=== PATIENT | female | born 1955 | race Caucasian/White ===

== ENCOUNTER 2019-08-01 11:30 | Outpatient (RCR) | payer OTHER, SELFPAY ==
--- NOTE | 2019-07-21 14:47 | PTOPEVAL ---
Thank you for referring this patient to [facility]. Please review, sign, date and return this plan of care DIEGO. Pt seen for PT evaluation following back surgery. She requires additional skilled therapy to address impairments of weakness, pain, decreased functional mobility and instruction in a HEP. Cont PT 2-3x/wk x 6 wk. I agree with and certify that the following plan of care is medically necessary. Referring Physician Date Attending Provider: PHYSICIAN NOT ON STAFF Referring Provider: Dr. Saulo Bell MD *PT Outpatient Evaluation Start: 07/21/19 13:37 Freq: Status: Active Protocol: Document 07/21/19 13:34 CAP (Rec: 07/21/19 14:47 CAP [id number]) Therapy Assessment Status Assessment Status Evaluation Outpatient Past Medical History Cardiovascular History Hx Hypertension Yes Gastrointestinal History Hx Gastroesophageal Reflux Disease Yes Hx Other Gastrointestinal Disorders Yes: obesity Musculoskeletal History Hx Arthritis Yes Hx Back Injury Yes Hx Back Pain Yes: chronic low back pain Hx Degenerative Disk Disease Yes: DDD L1-l4 Hx Spinal Surgery Yes: 06/05/19 Hx Other Musculoskeletal Disorders Yes: soco carpal tunnel syndrome Endocrine History Hx Diabetes Yes: neuropathy Evaluation Information Problem Diagnosis disc hernitation L1-L4 Onset 2019 Cause unknown Additional Evaluation Detail Prior to surgery she feel 2 x' s when walking. No injury with the falls. She is not performing a HEP from her previous PT. Subjective Information She underwent diskectomy and Query Text:As Reported By Patient/ hemilaminectomy of lumbar Family region on 06/05/19. She was DC home after 1 day. She has not been performing any exercise at home,only minimal walking around the house. She uses the walker 90% of the time, but a cane with assist of family member for limited community mobility. She is able to perform community walking in the store if using a cart to hold onto for support. After the surgery she has had improved right thigh pain and spasm. States she started having back pain in 2018
--- NOTE | 2019-08-04 11:00 | PCPTNOTE ---
Patient called & cancelled scheduled appointment this date due to [ ]illness.
--- NOTE | 2019-08-05 15:50 | PCPTNOTE ---
Patient called & cancelled all her remaining scheduled appointment this date due to COVID-19. States she will be losing her insurance on 08/20/19. Will DC pt from skilled therapy at this time.
--- NOTE | 2019-08-05 15:54 | PCPTNOTE ---
Admitting Provider: Attending Provider: PHYSICIAN NOT ON STAFF Patient:Dione Frank Date of :1955 Patient has not returned for any further treatments since 08/01/2019, therefore she will be discharged from therapy at this time. She has requested to not continue therapy due to COVID-19 concerns. The goals have not been achieved due to pt seen for only 2 visits. Thank you for referring this patient to [facility]. Please review, sign, date and return this discharge summary DIEGO. I have been updated about the patient's current status and I agree with discharge from the above service at this time. Referring Physician Date
== END 2019-08-06 15:19 | disposition home or self-care (01) ==
LOC: ANHPT 11:30
PROVIDERS: PCP Family Medicine
DX: M51.26 Other intervertebral disc displacement, lumbar region (principal)
CPT/HCPCS: 97110; 97162

== ENCOUNTER 2020-09-21 11:55 | Outpatient (CLI) | payer MEDICARE, SELFPAY ==
[2020-09-21 12:20] LABS: Basophils Absolute Auto 0.1 K/mm3 (0.0-0.1); Basophils Percent Auto 0.4 % (0.2-1.2); Eosinophils Absolute Auto 0.2 K/mm3 (0-0.3); Hematocrit 47.5 % (37.0-47.0); Hemoglobin 15.5 g/dL (12.0-15.0); Immature Granulocyte Absolute 0.05 K/mm3 (0.00-0.031); Immature Granulocyte Percent A 0.3 % (0-0.5); Lymphocytes Absolute Auto 4.51 K/mm3 (0.9-3.2); Lymphocytes Percent Auto 26.1 % (18.3-44.2); Mean Corpuscular HGB Conc 32.6 g/dl (32-36); Mean Corpuscular Hemoglobin 27.1 pg (26-34); Mean Corpuscular Volume 83.2 fl (80-100); Mean Platelet Volume 10.2 fl (7.4-10.4); Monocytes Absolute Auto 0.9 K/mm3 (0.1-0.6); Neutrophils Absolute Auto 11.6 K/mm3 (1.3-6.7); Neutrophils Percent Auto 67.2 % (45.5-73.1); Platelet Count Result 299 k/mm3 (150-375); Red Blood Count 5.71 M/mm3 (4.2-5.4); Red Cell Distribution Width 15.5 % (11.5-14.5); White Blood Count 17.3 K/mm3 (4.5-10.0)
[2020-09-21 12:26] LABS: Atypical Lymphocytes Present; Platelet Estimate Adequate (Adequate)
[2020-09-21 16:59] LABS: Alanine Aminotransferase 20 U/L (4-35); Albumin Level 4.4 g/dL (3.5-5.1); Alkaline Phosphatase 99 U/L (38-126); Anion Gap 14 mmol/L (8-16); Aspartate Amino Transferase 32 U/L (14-36); Bilirubin,Total 0.6 mg/dL (0.2-1.3); Blood Urea Nitrogen 23 mg/dL (7-17); Calcium 9.4 mg/dL (8.4-10.2); Carbon Dioxide 25 mmol/L (22-30); Chloride 100 mmol/L (98-107); Estimated Glomerular Filt Rate > 60; Glucose 205 mg/dL (65-105); Potassium 3.4 mmol/L (3.4-5.0); Sodium 139 mmol/L (137-145)
[2020-09-21 17:02] LABS: Immunoglobulin A 599 mg/dL (70-400); Immunoglobulin G 1211 mg/dL (700-1600); Immunoglobulin M 204 mg/dL (40-230)
[2020-09-23 22:41] LABS: Kappa\\Lambda Light Chains 0.99 (0.26-1.65); Lambda Light Chain 36.1 mg/L (5.7-26.3)
[2020-09-27 05:11] LABS: Alpha 1 Globulin 0.3 g/dL (0.2-0.3); Alpha 2 Globulin 0.9 g/dL (0.5-0.9); Beta 1 Globulin 0.6 g/dL (0.4-0.6); Gamma Globulin 1.2 g/dL (0.8-1.7); Protein, Total 7.6 g/dL (6.1-8.1)
== END 2020-09-21 11:56 | disposition home or self-care (01) ==
PROVIDERS: PCP Nurse Practitioner Adult Health; Visit Provider Internal Medicine Hematology & Oncology
DX: D72.9 Disorder of white blood cells, unspecified (principal)
CPT/HCPCS: 36415; 80053; 82784; 83883; 84155; 84165; 85025

== ENCOUNTER 2020-09-27 08:21 | Outpatient (CLI) | payer MEDICARE, SELFPAY ==
--- NOTE | ~2020-09-27 | MM_ITS ---
EXAMINATION: MM screening maria elena BI w rose HISTORY: Screening mammogram TECHNIQUE: Craniocaudal and mediolateral oblique 3-D tomosynthesis images were obtained and synthetic 2-D images were generated. CAD analysis was submitted and interpreted. COMPARISON: 04/02/2015 BREAST PARENCHYMAL COMPOSITION: The breasts are almost entirely fatty. FINDINGS: There is no evidence of suspicious mass, calcification, or architectural distortion to sugg est malignancy in either breast. There has been no suspicious interval change. IMPRESSION: 1. No mammographic evidence of malignancy. 2. Recommend routine screening mammography in one year. BI-RADS Category 1: Negative Reviewed, dictated and finalized at location A.
== END 2020-09-27 08:22 | disposition home or self-care (01) ==
LOC: ANHIMG 08:22
PROVIDERS: PCP Nurse Practitioner Adult Health; Visit Provider Nurse Practitioner Adult Health
DX: Z12.31 Encounter for screening mammogram for malignant neoplasm of breast (principal)
CPT/HCPCS: 77063; 77067

== ENCOUNTER 2020-10-06 10:11 | Outpatient (CLI) | payer MEDICARE, SELFPAY | END 2020-10-06 10:12 | disposition home or self-care (01) | LOC: ANHLAB 10:14 | PROVIDERS: PCP Nurse Practitioner Adult Health; Visit Provider Internal Medicine Hematology & Oncology | DX: D72.829 Elevated white blood cell count, unspecified (principal) | CPT/HCPCS: 88184; 88185 ==

== ENCOUNTER 2022-06-22 14:38 | Outpatient (CLI) | payer MEDICARE, SELFPAY ==
[2022-06-22 15:10] LABS: Basophils Absolute Auto 0.1 K/mm3 (0.0-0.1); Basophils Percent Auto 0.4 % (0.2-1.2); Eosinophils Absolute Auto 0.2 K/mm3 (0-0.3); Eosinophils Percent Auto 1.1 % (0-4.4); Hematocrit 32.2 % (37.0-47.0); Hemoglobin 8.6 g/dL (12.0-15.0); Immature Granulocyte Absolute 0.04 K/mm3 (0.00-0.031); Immature Granulocyte Percent A 0.3 % (0-0.5); Lymphocytes Absolute Auto 3.81 K/mm3 (0.9-3.2); Lymphocytes Percent Auto 23.9 % (18.3-44.2); Mean Corpuscular HGB Conc 26.7 g/dl (32-36); Mean Corpuscular Hemoglobin 16.9 pg (26-34); Mean Corpuscular Volume 63.3 fl (80-100); Mean Platelet Volume 9.1 fl (7.4-10.4); Monocytes Absolute Auto 0.9 K/mm3 (0.1-0.6); Monocytes Percent Auto 5.8 % (2.6-8.5); Neutrophils Absolute Auto 10.9 K/mm3 (1.3-6.7); Neutrophils Percent Auto 68.5 % (45.5-73.1); Platelet Count Result 418 k/mm3 (150-375); Red Blood Count 5.09 M/mm3 (4.2-5.4); Red Cell Distribution Width 20.9 % (11.5-14.5); White Blood Count 15.9 K/mm3 (4.5-10.0)
[2022-06-22 15:20] LABS: Atypical Lymphocytes Present; Platelet Estimate Increased (Adequate); Schistocytes None Seen (NORMAL); Target Cells 1+ (NORMAL)
[2022-06-22 15:21] LABS: Anisocytosis 1+ (NORMAL); Hypochromasia 1+ (NORMAL); Ovalocytes 1+ (NORMAL); Poikilocytosis 2+ (NORMAL)
[2022-06-22 17:18] LABS: Iron < 10 ug/dL (37-170)
[2022-06-22 17:24] LABS: Alanine Aminotransferase 18 U/L (6-35); Albumin Level 3.9 g/dL (3.5-5.1); Alkaline Phosphatase 97 U/L (38-126); Anion Gap 9 mmol/L (8-16); Aspartate Amino Transferase 22 U/L (14-36); Bilirubin,Total 0.9 mg/dL (0.2-1.3); Blood Urea Nitrogen 14 mg/dL (7-17); Calcium 8.5 mg/dL (8.4-10.2); Carbon Dioxide 28 mmol/L (22-30); Chloride 99 mmol/L (98-107); Estimated Glomerular Filt Rate > 60; Glucose 325 mg/dL (65-110); Lactate Dehydrogenase 231 U/L (120-246); Potassium 3.8 mmol/L (3.4-5.0); Sodium 136 mmol/L (137-145)
[2022-06-22 17:31] LABS: Immunoglobulin A 584 mg/dL (70-400); Immunoglobulin G 1107 mg/dL (700-1600); Immunoglobulin M 206 mg/dL (40-230); Percent Iron Saturation < 2 % (20-50)
[2022-06-22 17:56] LABS: Ferritin 5.26 ng/mL (11.1-264)
[2022-06-22 18:32] LABS: Folic Acid > 20.0 ng/mL (2.76->20)
[2022-06-25 15:14] LABS: Lambda Light Chain 24.3 mg/L (5.7-26.3)
[2022-06-25 17:43] LABS: Albumin 3.5 g/dL (3.8-4.8); Alpha 1 Globulin 0.4 g/dL (0.2-0.3); Alpha 2 Globulin 0.9 g/dL (0.5-0.9); Beta 1 Globulin 0.7 g/dL (0.4-0.6); Gamma Globulin 1.2 g/dL (0.8-1.7); Protein, Total 7.3 g/dL (6.1-8.1)
== END 2022-06-22 14:39 | disposition home or self-care (01) ==
LOC: ANHLAB 14:40
PROVIDERS: PCP Nurse Practitioner Adult Health; Visit Provider Internal Medicine Hematology & Oncology
DX: D64.9 Anemia, unspecified (principal); D72.9 Disorder of white blood cells, unspecified
CPT/HCPCS: 36415; 80053; 82607; 82728; 82746; 82784; 83540; 83550; 83615; 83883; 84155; 84165; 85025